=== PATIENT | male | born 1955 | race Caucasian/White ===

== ENCOUNTER 2024-03-24 07:10 | Day surgery (SDC) | payer OTHER, MEDICARE ==
[2024-03-24 07:48] LABS: Hematocrit 48.1 % (39.6-49.0)
[2024-03-24 08:50] VITALS: BP 134/74; TEMP 98.7; O2SAT 98; BMI 34.2
== END 2024-03-24 08:40 | disposition home or self-care (01) ==
LOC: DS 07:10
PROVIDERS: ATTEND Nurse Practitioner Family
DX: E83.110 Hereditary hemochromatosis (principal)
CPT/HCPCS: 36415; 85014; 85018; 99195